=== PATIENT | male | born 1990 | race Caucasian/White ===

== ENCOUNTER 2020-09-22 11:45 | Emergency (ER) | payer BC, SELFPAY ==
[2020-09-22 12:35] VITALS: BP 133/88; PULSE 102; RESP 14; TEMP 37.4; O2SAT 97
[2020-09-22 16:04] LABS: Basophils # 0.1 10^3/uL (0.0-0.1); Basophils % 0.3 %; Hematocrit 47.9 % (42.0-52.0); Hemoglobin 16.1 g/dL (11.7-16.6); Lymphocytes # 1.7 10^3/uL (0.8-4.8); Lymphocytes % 8.3 %; Mean Corpuscular HGB Conc 33.6 g/dL (30.0-36.0); Mean Corpuscular Hemoglobin 30.2 pg (28.0-34.0); Mean Corpuscular Volume 89.9 fL (80-94); Mean Platelet Volume 10.9 fL (7.4-10.4); Monocytes # 1.4 10^3/uL (0.2-0.9); Monocytes % 6.6 %; Neutrophils # 17.48 10^3/uL (1.8-7.7); Neutrophils % 84.3 %; Nucleated Red Blood Cells % 0 %; Platelet Count 243 10^3/cmm (130-400); Red Blood Count 5.33 10^6/uL (4.1-5.3); Red Cell Distribution Width 12.3 % (12.1-15.1); White Blood Count 20.7 10^3/uL (4.0-10.0)
[2020-09-22] MEDS: sodium chloride 0.9% 1,000 ML 999 ML IV (16:39)
[2020-09-22] MEDS: ceFAZolin 1,000 MG in sodium chloride 0.9% (plus) 50 ML 100 MG IV (16:39)
[2020-09-22 16:50] LABS: Anion Gap 15.2 (5-19); Blood Urea Nitrogen 15 mg/dL (6-20); Calcium 9.9 mg/dL (8.5-10.5); Carbon Dioxide 25 mmol/L (22-29); Chloride 102 mmol/L (98-107); Glucose 96 mg/dL (65-115); Osmolality Calculated 287 mOsm/kg (285-295); Potassium 4.2 mmol/L (3.5-5.1); Sodium 138 mmol/L (136-145)
--- NOTE | 2020-09-22 16:56 | ED_ITS ---
HPI - General Adult General: Chief complaint: General Medical Stated complaint: poss infection in thumb Time Seen by Provider: 09/22/20 12:17 Source: patient Mode of arrival: ambulatory Limitations: no limitations History of Present Illness: HPI narrative: 29-year-old male patient presents to the emergency department with a lip laceration that occurred 2 days ago to his right second digit. Patient states he was seen at his primary care physician's office and they did not suture it in order but was put on Augmentin as well as given a tetanus shot patient states he woke up today with red streaking all the way up his arm into his armpit. Patient states he has increased pain and swelling to that finger patient denies any fever but states he feels tired and weak all over. Associated symptoms: Deny chest pain, dyspnea, headache(s), nausea, palpitations, syncope or vomiting Review of Systems Const: Reports: body aches; Denies: fever(s) or chills Card: Denies: chest pain, palpitations, lightheadedness or syncope Resp: Denies: dyspnea, productive cough, non-productive cough, wheezing or pain on inspiration GI: Denies: abdominal pain, nausea, vomiting, hematemesis, diarrhea or constipation : Denies: flank pain, difficulty urinating, dysuria or urinary frequency Musc: Reports: extremity pain and extremity swelling; Denies: neck pain or back pain Skin/Breast: Reports: erythema; Denies: pruritus or photosensitivity Neuro: Denies: headache(s) Psych: Denies: anxiety, suicidal ideation or homicidal ideation Physical Exam Const: COMMON NORMALS: no acute distress, average body habitus, patient oriented x3, no limitations, healthy appearing, alert and well nourished Neck/C-Spine: COMMON NORMALS: full ROM, no lymphadenopathy, supple, no m eningeal signs and no JVD Lymph: LYMPHATIC: no lymphadenopathy noted Chest: COMMONS NORMALS: normal inspection of the chest Resp: COMMON NORMALS: normal respiratory effort, No retractions, No use of accessory muscles and clear to auscultation bilaterally AUSCULTATION: clear to auscultation bilaterally Cardio: COMMON NORMALS: no JVD, regular rate and regular rhythm RATE: regular rate RHYTHM: regular rhythm GI: COMMON NORMALS: Normal to inspection, nondistended, normoactive bowel sounds present, Soft to palpation, non-tender, No hepatosplenomegaly present, no masses and no bruits PALPATION: Yes Soft to palpation and Yes No hepatosplenomegaly present : COMMON NORMALS: Yes no CVA tenderness BLADDER/KIDNEY EXAM: Yes no CVA tenderness Back/Pelvis: COMMON NORMALS: no CVA tenderness, thoracic and lumbar spine normal to inspection, no thoracic nor lumbar tenderness and thoraco-lumbar ROM normal Extremity: COMMON NORMALS: capillary refill normal, no calf tenderness and no pedal edema RIGHT UPPER EXTREMITY: Yes hand & digits Right hand and digits: Yes inspection (Erythema noted to the second digit on the right hand there is red streaking), Yes palpation (Tender to palpitation), Yes ROM exam (Limited range of motion due to pain) and Yes neurovascular exam (Neurovascularly intact distally) Neuro: COMMON NORMALS: patient oriented x3 SENSORIUM/ORIENTATION: Yes alert MENINGEAL SIGNS: Yes no meningeal signs Course Vital Signs: Vital signs: Vital Signs Temperature 99.3 F 09/22/20 12:35 Pulse Rate 102 H 09/22/20 12:35 Respiratory Rate 14 09/22/20 12:35 Blood Pressure 133/88 09/22/20 12:35 Pulse Oximetry 97 09/22/20 12:35 MDM - General Adult MDM Narrative: Medical decision making narrative: I will obtain labs, blood cultures and start fluids and antibiotics at this time. Report to Aba. Lab Data: Labs: Lab Results 09/22/20 09/22/20 Range/Units 15:57 15:57 WBC 20.7 H (4.0-10.0) 10^3/ uL RBC 5.33 H (4.1-5.3) 10^6/u L Hgb 16.1 (11.7-16.6) g/dL Hct 47.9 (42.0-52.0) % MCV 89.9 (80-94) fL MCH 30.2 (28.0-34.0) pg MCHC 33.6 (30.0-36.0) g/dL RDW 12.3 (12.1-15.1) % Plt Count 243 (130-400) 10^3/c mm MPV 10.9 H (7.4-10.4) fL Neut % (Auto) 84.3 % Lymph % (Auto) 8.3 % Marshall % (Auto) 6.6 % Eos % (Auto) 0.0 % Baso % (Auto) 0.3 % Neut # (Auto) 17.48 H (1.8-7.7) 10^3/u L Lymph # (Auto) 1.7 (0.8-4.8) 10^3/u L Marshall # (Auto) 1.4 H (0.2-0.9) 10^3/u L Eos # (Auto) 0.0 (0.0-0.8) 10^3/u L Baso # (Auto) 0.1 (0.0-0.1) 10^3/u L Nucleated RBC % (a uto) 0 % Nucleated RBCs # 0.0 /100WBC Sodium 138 (136-145) mmol/L Potassium 4.2 (3.5-5.1) mmol/L Chloride 102 (98-107) mmol/L Carbon Dioxide 25 (22-29) mmol/L Anion Gap 15.2 (5-19) BUN 15 (6-20) mg/dL Creatinine 1.0 (0.7-1.2) mg/dL GFR Calculation 89.0 L (90-130) mL/min Glucose 96 (65-115) mg/dL Calculated Osmolal ity 287 (285-295) mOsm/k g Calcium 9.9 (8.5-10.5) mg/dL Discharge Plan Discharge Condition: Good Prescriptions: No Action amoxicillin-pot clavulanate 875-125 mg tablet 1 tab PO BID RF: 0 Adacel(Tdap Adolesn/Adult)(PF) 2 Lf-(2.5-5-3-5 mcg)-5Lf/0.5 mL syringe See Rx Instructions .ROUTE .COMPLEX RF: 0 Coding Level of Care Code ED Supervisor [place] for Chg Adryan
[2020-09-22] MEDS: HYDROcodone-acetaminophen 10-325 mg Tablet 1 TAB PO (17:01)
--- NOTE | 2020-09-22 17:05 | ED_ITS ---
HPI - General Adult General: Chief complaint: Extremity Injury, Upper Stated complaint: poss infection in thumb Time Seen by Provider: 09/22/20 12:17 History of Present Illness: HPI narrative: HPI per Evelina Esteves: 29-year-old male patient presents to the emergency department with a lip laceration that occurred 2 days ago to his right second digit. Patient states he was seen at his primary care physician's office and they did not suture it in order but was put on Augmentin as well as given a tetanus shot patient states he woke up today with red streaking all the way up his arm into his armpit. Patient states he has increased pain and swelling to that finger patient denies any fever but states he feels tired and weak all over. Associated symptoms: Deny chest pain, dyspnea, headache(s), nausea, palpitations, syncope or vomiting Review of Systems Narrative: Kana Esteves: Const Reports: body aches; Denies: fever(s) or chills Card Denies: chest pain, palpitations, lightheadedness or syncope Resp Denies: dyspnea, productive cough, non-productive cough, wheezing or pain on inspiration GI Denies: abdominal pain, nausea, vomiting, hematemesis, diarrhea or constipation Denies: flank pain, difficulty urinating, dysuria or urinary frequency Musc Reports: extremity pain and extremity swelling; Denies: neck pain or back pain Skin/Breast Reports: erythema; Denies: pruritus or photosensitivity Neuro Denies: headache(s) Psych Denies: anxiety, suicidal ideation or homicidal ideation I agree with ROS. Trav Troncoso PA-C Physical Exam Narrative: EXAM NARRATIVE: Kana Esteves: Const COMMON NORMALS: no acute distress, average body habitus, patient oriented x3, no limitations, healthy appearing, alert and well nourished Neck/C-Spine COMMON NORMALS: full ROM, no lymphadenopathy, supple, no meningeal signs and no JVD Lymph LYMPHATIC: no lymphadenopathy noted Chest COMMONS NORMALS: normal inspection of the chest Resp COMMON NORMALS: normal respiratory effort, No retractions, No use of accessory muscles and clear to auscultation bilaterally AUSCULTATION: clear to auscultation bilaterally Cardio COMMON NORMALS: no JVD, regular rate and regular rhythm RATE: regular rate RHYTHM: regular rhythm GI COMMON NORMALS: Normal to inspection, nondistended, normoactive bowel sounds present, Soft to palpation, non-tender, No hepatosplenomegaly present, no masses and no bruits PALPATION: Yes Soft to palpation and Yes No hepatosplenomegaly present COMMON NORMALS: Yes no CVA tenderness BLADDER/KIDNEY EXAM: Yes no CVA tenderness Back/Pelvis COMMON NORMALS: no CVA tenderness, thoracic and lumbar spine normal to inspection, no thoracic nor lumbar tenderness and thoraco-lumbar ROM normal Extremity COMMON NORMALS: capillary refill normal, no calf tenderness and no pedal edema RIGHT UPPER EXTREMITY: Yes hand & digits Right hand and digits: Yes inspection (Erythema noted to the second digit on the right hand there is red streaking), Yes palpation (Tender to palpitation), Yes ROM exam (Limited range of motion due to pain) and Yes neurovascular exam (Neurovascularly intact distally) Neuro COMMON NORMALS: patient oriented x3 SENSORIUM/ORIENTATION: Yes alert MENINGEAL SIGNS: Yes no meningeal signs I agree with exam findings. Trav Troncoso PA-C Course Vital Signs: Vital signs: Vital Signs Temperature 99.3 F 09/22/20 12:35 Pulse Rate 102 H 09/22/20 12:35 Respiratory Rate 14 09/22/20 12:35 Blood Pressure 133/88 09/22/20 12:35 Pulse Oximetry 97 09/22/20 12:35 MDM - General Adult MDM Narrative: Medical decision making narrative: I took over patient care from Evelina Esteves at 5 PM. She had started the initial lab work-up and labs were pending. Patient is a 29-year-old male comes to the ED with cellulitis and right hand over second digit. Patient cut finger 2 days ago on the bone of a squirrel after he was trying to skin it. Yesterday he went into PCP and was given a tetanus shot and sent with a prescription of Augmentin. Patient says he woke up today and redness and swelling had gotten worse and he noticed he had red streaks up his arm, so he came into the ED to be evaluated. He took his first dose of Augmentin this morning before coming into the ED. Patient had red streaking up right arm into the forearm. He had erythema warmth swelling around second digit of right hand. White blood cell count 20.7 the rest of CBC and CMP were unremarkable. Lactate 1.2. CT of right forearm showed some cellulitis in the right thumb no organized fluid collection or abscess identified. Patient was given IV Ancef 1 g while here in the ED. He was then discharged and told to continue taking Augmentin and was sent with a written prescription of hydrocodone 5/325 mg 6 tablets for pain. Return to ED precautions given. He was told to return to ED if after 48 hours of being on antibiotic symptoms worsen or he has no improvement. Patient told to follow-up with PCP in 7 to 10 days for reevaluation. Patient understood agree with plan. Lab Data: Attestation: I reviewed the patient's lab results. Labs: Lab Results 09/22/20 09/22/20 09/22/20 Range/Units 15:57 15:57 16:38 WBC 20.7 H (4.0-10.0) 10^3/ uL RBC 5.33 H (4.1-5.3) 10^6/u L Hgb 16.1 (11.7-16.6) g/dL Hct 47.9 (42.0-52.0) % MCV 89.9 (80-94) fL MCH 30.2 (28.0-34.0) pg MCHC 33.6 (30.0-36.0) g/dL RDW 12.3 (12.1-15.1) % Plt Count 243 (130-400) 10^3/c mm MPV 10.9 H (7.4-10.4) fL Neut % (Auto) 84.3 % Lymph % (Auto) 8.3 % Valencia % (Auto) 6.6 % Eos % (Auto) 0.0 % Baso % (Auto) 0.3 % Neut # (Auto) 17.48 H (1.8-7.7) 10^3/u L Lymph # (Auto) 1.7 (0.8-4.8) 10^3/u L Valencia # (Auto) 1.4 H (0.2-0.9) 10^3/u L Eos # (Auto) 0.0 (0.0-0.8) 10^3/u L Baso # (Auto) 0.1 (0.0-0.1) 10^3/u L Nucleated RBC % (a uto) 0 % Nucleated RBCs # 0.0 /100WBC Sodium 138 (136-145) mmol/L Potassium 4.2 (3.5-5.1) mmol/L Chloride 102 (98-107) mmol/L Carbon Dioxide 25 (22-29) mmol/L Anion Gap 15.2 (5-19) BUN 15 (6-20) mg/dL Creatinine 1.0 (0.7-1.2) mg/dL GFR Calculation 89.0 L (90-130) mL/min Glucose 96 (65-115) mg/dL Calculated Osmolal ity 287 (285-295) mOsm/k g Lactate 1.2 (0.5-2.2) mmol/L Calcium 9.9 (8.5-10.5) mg/dL Imaging Data^: Other CT: Attestation: I personally reviewed and interpreted this imaging study as follows: Radiologist's impression: [facility] [address] [address] Scan Report Signed Patient: Nikos Kam Unit #: [id number] : 1990 Age/Sex: 29 / M ADM Date: 09/22/20 Loc: ER Room/Bed: Attending Dr: Ordering Provider/Ordering MD: Trav Troncoso Date of Service: 09/22/20 Procedure(s): CT forearm RT w con [id number] Accession Number(s): [id number] Report Number: [id number] PROCEDURE INFORMATION: Exam: CT Right Upper Extremity With Contrast, Forearm Exam date and time: 09/22/2020 6:34 PM Age: 29 years old Clinical indication: Swelling; Upper limb; Right; Patient HX: Lac to knuckle of thumb 2 days ago now with red streaking up forearm; Additional info: Infection in 2nd digit with streaking up arm TECHNIQUE: Imaging protocol: CT of the Right upper extremity with intravenous contrast was performed. Exam focused on the forearm. Radiation optimization: All CT scans at this facility use at least one of these dose optimization techniques: automated exposure control; mA and/or kV adjustment per patient size (includes targeted exams where dose is matched to clinical indication); or iterative reconstruction. Contrast material: OMNI 300; Contrast volume: 95 ml; Contrast route: INTRAVENOUS (IV); COMPARISON: No relevant prior studies available. RADIATION DOSE METRICS: Total DLP (mGy-cm): 1203.39 FINDINGS: Bones/joints: The bones are intact and in normal alignment. Soft tissues: Soft tissue edema in the right thumb. No organized fluid collection or abscess identified. The muscles and muscular compartments are unremarkable. CT/CT forearm RT w con [id number] IMPRESSION: 1. Mild edema/cellulitis in the right thumb. No organized fluid collection or abscess identified. 2. No acute skeletal abnormality. Radiation Dose CTDIVOL = (mGy): DLP = 1203.39 (mGy-cm) Dictated By: Hugo Vinson Signed By: Hugo Vinson Signed Date/Time: 09/22/201902 DD/ 00 Discharge Plan Discharge Patient Disposition: Home Clinical Impression: Cellulitis Qualifiers: Site of cellulitis: extremity Site of cellulitis of extremity: finger Laterality: right Qualified Code(s): L03.011 - Cellulitis of right finger Condition: Stable Prescriptions: No Action amoxicillin-pot clavulanate 875-125 mg tablet 1 tab PO BID RF: 0 Adacel(Tdap Adolesn/Adult)(PF) 2 Lf-(2.5-5-3-5 mcg)-5Lf/0.5 mL syringe See Rx Instructions .ROUTE .COMPLEX RF: 0 Discharge Orders: Discharge Order (Routine); Ordered 09/22/20 Ordered By: Trav Troncoso Discharge Diet: Regular Discharge Activity: Increase activity as tolerated Patient Instructions: Cellulitis (ED) Activity Restrictions/Additional Instructions: Follow-up with medical provider as directed in 7-10 days. If after being on antibiotics for another 48 hours do not see any improvement return for reevaluation. Take medications as prescribed. Return to the ER or your medical provider if condition worsens. Please read and understand discharge instructions. If any questions, please ask. Sign Out Sign Out Data: Patient Sign Out occurred on 09/22/20 at 17:13. Patient's care was discussed, and care was transferred from to REHANA Brown. Coding Level of Care Code ED Assistant Project Engineer for Jelena Cornelius
[2020-09-22 17:22] VITALS: BMI 28.5
[2020-09-22 17:30] LABS: Lactate (Lactic Acid level) 1.2 mmol/L (0.5-2.2)
--- NOTE | 2020-09-22 17:39 | CTR_ITS ---
PROCEDURE INFORMATION: Exam: CT Right Upper Extremity With Contrast, Forearm Exam date and time: 09/22/2020 6:34 PM Age: 29 years old Clinical indication: Swelling; Upper limb; Right; Patient HX: Lac to knuckle of thumb 2 days ago now with red streaking up forearm; Additional info: Infection in 2nd digit with streaking up arm TECHNIQUE: Imaging protocol: CT of the Right upper extremity with intravenous contrast was performed. Exam focused on the forearm. Radiation optimization: All CT scans at this facility use at least one of these dose optimization techniques: automated exposure control; mA and/or kV adjustment per patient size (includes targeted exams where dose is matched to clinical indication); or iterative reconstruction. Contrast material: OMNI 300; Contrast volume: 95 ml; Contrast route: INTRAVENOUS (IV); COMPARISON: No relevant prior studies available. RADIATION DOSE METRICS: Total DLP (mGy-cm): 1203.39 FINDINGS: Bones/joints: The bones are intact and in normal alignment. Soft tissues: Soft tissue edema in the right thumb. No organized fluid collection or abscess identified. The muscles and muscular compartments are unremarkable. CT/CT forearm RT w con [id number] IMPRESSION: 1. Mild edema/cellulitis in the right thumb. No organized fluid collection or abscess identified. 2. No acute skeletal abnormality. Radiation Dose CTDIVOL = (mGy): DLP = 1203.39 (mGy-cm)
[2020-09-22] MEDS: iohexol 300 mg/mL 100 mL Btl IV (18:43)
--- NOTE | 2020-09-22 19:42 | PC.NURSE ---
pt sent home with 2 tablets hydrocodone 7.5mg/325mg per Trav Troncoso. Medication education provided. pt verbalizes understanding.
== END 2020-09-22 19:44 | disposition home or self-care (01) ==
PROVIDERS: Family Medicine; Registered Nurse; Emergency Provider Physician Assistant
DX: S61.210A Laceration without foreign body of right index finger without damage to nail, initial encounter (principal); L03.011 Cellulitis of right finger; W26.8XXA Contact with other sharp object(s), not elsewhere classified, initial encounter
CPT/HCPCS: 12345; 73201; 80048; 83605; 85025; 87040; 96365; 99283; J0690; J7030; Q9967

== ENCOUNTER 2024-02-14 12:52 | Outpatient (CLI) | payer OTHER, SELFPAY ==
--- NOTE | 2024-02-14 12:59 | CT_ITS ---
WS: [id number] CT chest w con* [id number] HISTORY: MASS/LUMP TECHNIQUE: Axial imaging performed through the thorax. Coronal and sagittal reformats are submitted. All CT scans at [facility] use at least one of these dose optimization techniques: automated exposure control; mA and/or kV adjustment per patient size (includes targeted exams where dose is mat ched to clinical indication); or iterative reconstruction. CONTRAST: Omnipaque 350; 100 mL IV. DLP: 525.80 mGy.cm COMPARISON: Chest radiograph 01/13/2024 Lungs and central airway: Normally aerated lungs. There is a very minimal peripheral interstitial pro minence. No pneumonia. No mass or nodule. No hyperexpansion or volume loss. Pleura: Normal. No pleural effusion. Heart and pericardium: Normal size heart with no pericardial effusion. Mediastinum and tobin: No mediastinum or hilar adenopathy. Vessels: Normal size aortic and pulmonary artery. No coronary artery calcifications. Chest wall and lower neck: No soft tissue masses. Upper abdomen: Small hiatal hernia. Marked low-attenuation throughout the liver most likely from hepa tic steatosis. Visualized gallbladder is negative. No adrenal mass. Osseous structures: No destructive process. IMPRESSION: 1. No pneumonia. 2. There is very minimal interstitial thickening in the periphery of both lungs. No mass or nodule. May be postinflammatory. No mass. 3. No adenopathy. 4. Hepatic steatosis within the visualized liver.
[2024-02-14] MEDS: iohexol 350 mg/mL 500 mL Btl (per mL) IV (13:21)
== END 2024-02-14 12:53 | disposition home or self-care (01) ==
LOC: RAD 12:53
PROVIDERS: Visit Provider Electrodiagnostic Medicine
DX: R22.2 Localized swelling, mass and lump, trunk (principal); K76.0 Fatty (change of) liver, not elsewhere classified
CPT/HCPCS: 71260; Q9967